=== PATIENT | female | born 1975 | race American Indian/Alaskan Native ===

== ENCOUNTER 2020-03-25 05:55 | Observation (INO) | payer BC ==
--- NOTE | 2020-03-22 15:15 | History and Physical Report ---
History of Present Illness Date of examination: 03/18/20 History of present illness: Patient has been reassessed/reevaluated. H&P has been reviewed. No interval changes. This is a 44 years old female who presents with uterine fibroids. The symptoms began >1 year ago. She complains of abdominal pain, abdominal pressure, pelvic pain, pelvic pressure, menorrhagia and intermenstrual bleeding. She complains of heavy bleeding, dysmenorrhea, clotting, and cramping, but denies , lack of menses, history of ovarian cysts, history of thyroid disease, history of bleeding disorder, lightheadedness and fatigue. Interval between menses is 28 days and 30 days. Patient reports that for pain she uses ibuprofen. Patient's work up has included hysterosonogram which revealed leiomyomata and a benign endometrial biopy. Patient's symptoms when present disrupts her normal daily activities Conservative therapies have failed. Patient desires definitive treatment Vital Signs: Patient Profile: 44 Years Old Female LMP: 02/26/2020 Height: 62 inches (157.48 cm) Weight: 182 pounds BMI: 33.28 Temp: 98.9 degrees F BP sittin / 80 Menstrual History: LMP (date): 02/26/2020 Current Method of Contraception: None Date of Last Pap Smear: 08/07/2019 Past History : 5 Term Births: 1 Premature Births: 0 Living Children: 1 Para: 1 Mult. Births: 0 Prev : 1 Aborta: 4 Elect. Ab: 0 Spont. Ab: 4 Ectopics: 0 LIVE IN [employer] History Operations: (1999) Ratna (2004) D&C: Abnormal PAP: positive Uterine Anomaly: positive fibroids Infection History HIV Risk Eval: no Personal hx. of genital herpes: yes Hx of STD: Trichomonas Current Allergies (reviewed today): PCN (Critical) ERYTHROMYCIN (Critical) REGLAN (Critical) IODINE (Critical) * LATEX (Critical) Past Medical History: PCOS Hypertension Fibroids Past Surgical History: (1999) Ratna (2004) D&C: Family History Summary: Reviewed history Last on 08/07/2019 and no changes required:03/22/2020 Daughter - Has No Family History of Ovarvian Cancer - Please disregard relationships chosen - Entered On: 03/31/2014 Daughter - Has No Family History of Colon Cancer - Please disregard relationships chosen - Entered On: 03/31/2014 Daughter - Has Family History of Lung Cancer - Please disregard relationships chosen - Entered On: 03/31/2014 Daughter - Has Family History of Hypertension - Please disregard relationships chosen - Entered On: 03/31/2014 Daughter - Has Family History of CVA or Stroke - Please disregard relationships chosen - Entered On: 03/31/2014 Daughter - Has Family History of Diabetes - Please disregard relationships chosen - Entered On: 03/31/2014 Daughter - Has Family History Breast Cancer - Please disregard relationships chosen - Entered On: 03/31/2014 Social History: Patient is single Correction Smoking History: Patient has never smoked. Risk Factors: Smoked Tobacco Use: Never smoker Smokeless Tobacco Use: Never Passive smoke exposure: no Drug use: no HIV high-risk behavior: no Caffeine use: 1 drinks per day Alcohol use: no Exercise: yes Times per week: 2 Seatbelt use: 100 % PAP Smear History: Date of Last PAP Smear: 08/07/2019 Review of Systems General Complains of fatigue. Denies fever, chills, sweats, anorexia, weakness, malaise, weight loss and sleep disorder. Complains of menorrhagia, abnormal vaginal bleeding, pelvic pain and painful periods. Denies vaginal discharge, incontinence, dysuria, hematuria, urinary frequency, amenorrhea, genital sores, decreased libido, painful sex, urinary urgency, hot flashes, vaginal dryness, vaginal itching and vaginal odor. CV Denies chest pains, palpitations, syncope, dyspnea on exertion, orthopnea, PND and peripheral edema. Resp Denies cough, dyspnea at rest, excessive sputum, hemoptysis, wheezing and pleurisy. GI Denies nausea, vomiting, diarrhea, constipation, change in bowel habits, abdominal pain, melena, hematochezia, jaundice, gas/bloating, indigestion/heartburn, dysphagia and odynophagia. Breast Denies left breast lump, right breast lump, nipple discharge, bloody discharge from nipple, breast pain, abnormal mammogram and breast enlargement. Psych Denies depression, anxiety, irritability and mood swings. Past History Past Medical History: other (SEE HPI FOR MORE DETAILS) Past Surgical History: , Other (SEE HPI FOR MORE DETAILS) Social history: full code, other (SEE HPI FOR MORE DETAILS) Family history: other (SEE HPI FOR MORE DETAILS) Medications and Allergies Allergies Allergy/AdvReac Type Severity Reaction Status Date / Time metoclopramide [From Reglan] Allergy Muscles Verified 03/19/20 15:12 locked up Penicillins Allergy Hives Verified 03/19/20 15:12 Home Medications Medication Instructions Recorded Confirmed Last Taken Type Albuterol Sulfate [Proventil Hfa] 2 puff IH Q4H PRN 03/19/20 03/19/20 Unknown History Ascorbic Acid [Vitamin C] 1,000 mg PO DAILY 03/19/20 03/19/20 Unknown History Docusate Sodium [Colace] 100 mg PO BID PRN 03/19/20 03/19/20 Unknown History Ibuprofen [Motrin] 600 mg PO Q8H PRN 03/19/20 03/19/20 Unknown History Multivitamin [Daily Multiple 1 each PO DAILY 03/19/20 03/19/20 Unknown History Vitamin] Naproxen [Naprosyn] 375 mg PO BID 03/19/20 03/19/20 Unknown History Sennosides [Senna] 8.6 mg PO DAILY 03/19/20 03/19/20 Unknown History cloNIDine [Catapres] 0.1 mg PO BID 03/19/20 03/19/20 Unknown History Review of Systems Constitutional: other (SEE HPI FOR MORE DETAILS) Exam - Physical Exam Narrative exam: HEENT: normocephalic, no lesions or deformities Skin no significant abnormal lesions or rashes increased hair growth Chest: respiratory effort normal, clear to auscultation CV: regular, normal S1-S2, no murmur, no rub, no gallop Abdomen: normal bowel sounds, soft, nontender, no HSM Well healed pfannenstiel scar increased hair growth Neuro: no gross anomalities Extremities: no clubbing, cyanosis, or edema increased hair growth L[employer] IN [employer] Exams Vulva/Vagina: No lesions, normal BUS, normal rugae Cervix: No lesions; no cervical motion tenderness Uterus: enlarged 10 to 12 weeks in size Adnexae: unable to palapte due to obesity Rectovaginal: exam defered Results - Labs CBC & Chem 7: 03/23/20 12:45 Assessment and Plan - Patient Problems (1) Intramural leiomyoma of uterus Current Visit: No Status: Acute (2) Menorrhagia Current Visit: No Status: Acute (3) Dysmenorrhea Current Visit: No Status: Acute (4) BMI 33.0-33.9,adult Current Visit: No Status: Acute (5) Asthma Current Visit: No Status: Acute Qualifiers: Asthma severity: unspecified severity
[2020-03-23 12:51] LABS: Basophils % (Auto) 0.7 % (0.0-1.8); Eosinophils # (Auto) 0.3 K/mm3 (0.0-0.4); Eosinophils % (Auto) 5.6 % (0.0-4.3); Hematocrit 37.7 % (30.3-42.9); Hemoglobin 12.2 gm/dl (10.1-14.3); Lymphocytes # (Auto) 2.1 K/mm3 (1.2-5.4); Lymphocytes % (Auto) 38.2 % (13.4-35.0); Mean Corpuscular HGB Conc 33 % (30-34); Mean Corpuscular Volume 76 fl (79-97); Monocytes # (Auto) 0.5 K/mm3 (0.0-0.8); Monocytes % (Auto) 9.5 % (0.0-7.3); Platelet Count 358 K/mm3 (140-440); Red Blood Count 4.99 M/mm3 (3.65-5.03); Red Cell Distribution Width 18.6 % (13.2-15.2)
--- NOTE | 2020-03-23 13:49 | Anesthesia Consultation ---
Anesthesia Consult and Med Hx Date of service: 03/25/20 - Airway Anesthetic Teeth Evaluation: Good ROM Head & Neck: Adequate Mental/Hyoid Distance: Adequate Mallampati Class: Class I Intubation Access Assessment: Good - Pulmonary Exam CTA: Yes - Cardiac Exam Cardiac Exam: RRR - Pre-Operative Health Status ASA Pre-Surgery Classification: ASA2 Proposed Anesthetic Plan: General Nerve Block: TAP - Pulmonary Hx Smoking: No Hx Asthma: Yes (last inhaler use 02/2020 triggered by freshly cut grass) Hx Respiratory Symptoms: No - Cardiovascular System Hx Hypertension: Yes Hx Heart Attack/AMI: No Hx Percutaneous Transluminal Coronary Angioplasty (PTCA): No Hx Cardia Arrhythmia: No - Central Nervous System CVA: No - Gastrointestinal Hx Gastroesophageal Reflux Disease: No - Endocrine Hx Renal Disease: No Hx Liver Disease: No Hx Insulin Dependent Diabetes: No Hx Non-Insulin Dependent Diabetes: No Hx Thyroid Disease: No - Other Systems Hx Obesity: Yes (BMI 33) - Additional Comments Anesthesia Medical History Comments: Hx PONV with previous anesthetics. BP elevated in preassessment, asymptomatic. Patient has not taken antihypertensives today and complains of pelvic pain. Instructed to take today's dose and also to take on the morning of surgery.
[2020-03-25] MEDS ORDERED: GENTAMICIN 40 MG/ML VIAL 2 ML IV SCH (06:00)
[2020-03-25] MEDS ORDERED: fentaNYL 100 MCG/2 ML INJ IV PRN (06:00)
[2020-03-25] MEDS ORDERED: GENTAMICIN/NS 120MG/100ML 120 MG/100 ML BAG IV NR (06:00)
[2020-03-25] MEDS ORDERED: ACETAMINOPHEN 500 MG TAB PO SCH (06:00)
[2020-03-25] MEDS ORDERED: SCOPOLAMINE TRANSDERMAL PATCH 72 HR TD NR (06:00)
[2020-03-25] MEDS ORDERED: MIDAZOLAM 2 MG/2 ML INJ IV NR (06:00)
[2020-03-25] MEDS ORDERED: GABAPENTIN 300 MG CAP PO NR (06:00)
[2020-03-25] MEDS: LACTATED RINGERS 1,000 ML IV SCH ×2 (06:30→13:43)
[2020-03-25] MEDS ORDERED: BUPIVACAINE-EPINEPHRINE/PF 0.25%-1:200,000 (10 ML) VIAL INFILTRATI ONE (07:11)
[2020-03-25] MEDS ORDERED: dexAMETHasone 4 MG/ML VIAL ONE (07:12)
[2020-03-25] MEDS ORDERED: CITRIC ACID-SOD CITRATE 500 ML IV ONE (07:15)
[2020-03-25] MEDS ORDERED: ROCURONIUM 50 MG/5 ML INJ IV ONE (07:22)
[2020-03-25] MEDS ORDERED: ONDANSETRON 4 MG/2 ML INJ ONE (07:22)
[2020-03-25] MEDS ORDERED: GLYCOPYRROLATE 0.4 MG/2 ML INJ ONE (07:22)
[2020-03-25] MEDS ORDERED: propofoL 200 MG/20 ML VIAL IV ONE (07:22)
[2020-03-25] MEDS ORDERED: NEOSTIGMINE 10MG/10 ML INJ MDV ONE (07:22)
[2020-03-25] MEDS ORDERED: SUCCINYLCHOLINE CHLORIDE 200 MG/10 ML INJ MDV ONE (07:22)
[2020-03-25] MEDS ORDERED: HYDROmorphone 1 MG/1 ML INJ ONE ×2 (07:22→10:17)
[2020-03-25] MEDS ORDERED: dexAMETHasone 20 MG/5 ML VIAL ONE (07:22)
[2020-03-25] MEDS ORDERED: LIDOCAINE MPF (2%) 20 MG/1 ML VIAL 5 ML ONE (07:22)
[2020-03-25] MEDS ORDERED: SODIUM CHLORIDE 0.9% 100 ML ONE (07:24)
[2020-03-25] MEDS ORDERED: VASOPRESSIN 20 UNIT/1 ML INJ ONE (07:25)
[2020-03-25] MEDS ORDERED: PHENYLEPHRINE/NS 1,000 MCG/10 ML SYRINGE (OR USE) IV ONE (07:30)
--- NOTE | 2020-03-25 07:35 | Anesthesia Day of Surgery ---
Anesthesia Day of Surgery - Day of Surgery Patient Examined: Yes Patient H&P Reviewed: Yes Patient is NPO: Yes
[2020-03-25 07:38] LABS: Alanine Aminotransferase 14 units/L (7-56); Albumin 3.7 g/dL (3.9-5); BUN/Creatinine Ratio 10; Blood Urea Nitrogen 8 mg/dL (7-17); Calcium 8.7 mg/dL (8.4-10.2); Hemolysis Index 18
[2020-03-25] MEDS ORDERED: ONDANSETRON 4 MG/2 ML INJ IV PRN (08:00)
[2020-03-25] MEDS ORDERED: VASOPRESSIN 20 UNIT in SODIUM CHLORIDE 0.9% 100 ML INFILTRATI ONE (09:40)
[2020-03-25] MEDS ORDERED: SODIUM CHLORIDE 0.9% IRRIG SOLN 2000 ML IR ONE (09:40)
[2020-03-25] MEDS ORDERED: SODIUM CHLORIDE 0.9% IRR 1,000 ML BOTTLE IR ONE (09:40)
--- NOTE | 2020-03-25 11:42 | Operative Report ---
Operative Report Operative Report: Date of procedure: March 25, 2020 Pre-operative diagnosis: Symptomatic leiomyomata with menorrhalgia and pain Post-operative diagnosis: Same plus pelvic adhesive disease Procedure name(s): Robotic assisted myomectomy with lysis of adhesions Surgeon: Félix Low MD [employer] Specialist: JOHN PAUL Suero Anesthesia: General EBL: 100 cc Complications: None Findings: Patient had omental adhesions in the anterior abdominal wall at a uterus approximately 10 to 12 weeks in size with a large posterior leiomyomata about 5 cm in diameter with evidence of adenomyosis where on ultrasound was possible anterior myoma about 1 cm of consistent with probable adenomyosis. Patient with normal ovaries and tubes bilaterally Specimen(s): Leiomyomata Procedure: Patient taken operating room where general endotracheal anesthesia was induced difficulty. She was placed in dorsal lithotomy position prepped and draped in usual normal sterile fashion for robotic procedure. The Foster catheter was placed in urinary bladder without difficulty speculum placed in the vagina. A medium V care uterine manipulator was placed without any difficulty. Then attention was switched to the patient's abdomen. Supra-umbilical incision was made with a knife. Spread with a hemostat. A 10-12 Trocar was placed in this incision while lifting out anterior abdominal wall under direct visualization. Intra-abdominal cavity was entered without any evidence of internal organ damage. Patient was insufflated approximately 3 and half liters of CO2 gas. Patient's pelvic findings noted above. The patient was perceived to be a candidate for robotic procedure. Three 8 mm robotic instrument trocars were placed. One on either side of the midline camera trocar approximately 8 cm from the midline and a third in the left lower quadrant approximately 2 fingerbreadths above the iliac crest. The trocars were placed under direct visualization with no signs of internal organ damage. An assistant property manager port was placed in the right lower quadrant 2 fingerbreadths above the iliac crest under direct visualization without any evidence of internal organ damage, this was a 10-12 trocar. Michael Alcocer fascia closure systems were placed in both the right lower quadrant trocar position and the midline trocar camera position. The patient was then placed in severe Trendelenburg position. At this time the da Ann robot was docked on the patient's left side and robotic trocars were connected and robotic instruments placed in the normal fashion. At that time I my place under the operating muniz. The midline omental adhesions were then taken down using bipolar cautery and unipolar scissors. This lysis of adhesions was successfully with good hemostasis exposing the patient's pelvic findings as noted above. Pitressin was then injected in the myometrium underneath and surrounding the posterior myoma. Incision was made in the midline posterior uterus with a robotic scissors exposing the capsule of the myoma. Progressively cauterization and cutting of the capsule around the myoma was used to remove the myoma from the myometrium. As successful removing the large moment was placed in anterior cul-de-sac. The palpation and attempt to locate the the possible anterior myoma was done with the area of the serosa then cut where this fullness was felt but no myoma was found but findings consistent with adenomyosis. Both surgical beds were inspected and cauterized. Both were closed in layers with 0-V lock sutures. Both these incisions were hemostatic. The pelvis was copiously irrigated and suctioned. The morcellator was then placed in the assistant property manager port in the right lower quadrant and the myoma was successfully morcellated and removed through this port. There was minimal spillage of myoma. Small portions myomas were retrieved and removed through the excess report. The pelvis was then copiously irrigated and suction. Marcie was then placed over the uterine incisions for postoperative hemostasis. This was followed by placement of Interceed and attempt to prevent postoperative adhesions. All instruments were then removed. The da Ann device was undocked. Trocars were removed. The larger incisions were closed in layers. The fascial closure was done with 2-0 Vicryl with the skin closure done subcuticularly with 4-0 Monocryl. The patient tolerated procedure well. Patient was awakened in operating room and come to recovery room in good condition.
[2020-03-25] MEDS: HYDROmorphone 1 MG/1 ML INJ IV PRN ×2 (11:55→12:05)
[2020-03-25] MEDS ORDERED: KETOROLAC 30 MG/1 ML INJ ONE (12:16)
[2020-03-25] MEDS ORDERED: KETOROLAC 30 MG/1 ML INJ IV ONE (13:00)
--- NOTE | 2020-03-25 13:35 | Post Anesthesia Evaluation ---
- Post Anesthesia Evaluation Patient Participated: Yes Airway Patent: Yes Stable Respiratory Function: Yes Nausea/Vomiting: No Temp > 96.8F: Yes Pain Manageable: Yes Adequeate Hydration: Yes Anesthesia Complications: No
[2020-03-25] MEDS ORDERED: MAGNESIUM HYDROXIDE (MOM) ORAL LIQD UDC PO PRN (14:00)
[2020-03-25] MEDS ORDERED: D5W/LACTATED RINGERS 1,000 ML IV SCH (14:00)
[2020-03-25] MEDS ORDERED: ACETAMINOPHEN 325 MG TAB PO PRN (14:00)
[2020-03-25] MEDS: HYDROcodone/ACETAMINOPHEN 5-325 MG TAB PO PRN ×2 (14:43→20:33)
[2020-03-25] MEDS ORDERED: fentaNYL 100 MCG/2 ML INJ IV ONE (16:39)
--- NOTE | 2020-03-25 17:32 | Event Note ---
Date: 03/25/20 Day of surgery. Discuss operative findings with patient and questions answered. Patient without fever. Will ambulate in halls this evening. Good urine output. We will continue routine postoperative care. If patient is stable after dinner will discharge home.
--- NOTE | 2020-03-25 17:36 | Short Stay Summary ---
Short Stay Documentation Date of service: 03/25/20 - History Past Medical History: other (SEE HPI FOR MORE DETAILS) Past Surgical History: , Other (SEE HPI FOR MORE DETAILS) Social history: full code, other (SEE HPI FOR MORE DETAILS) - Allergies and Medications Current Medications: Allergies metoclopramide [From Reglan] Allergy (Verified 03/19/20 15:12) Muscles locked up Penicillins Allergy (Verified 03/19/20 15:12) Hives Home Medications Medication Instructions Recorded Confirmed Last Taken Type Albuterol Sulfate [Proventil Hfa] 2 puff IH Q4H PRN 03/19/20 03/25/20 03/18/20 09:00 History Ascorbic Acid [Vitamin C] 1,000 mg PO DAILY 03/19/20 03/25/20 03/18/20 09:00 History Docusate Sodium [Colace] 100 mg PO BID PRN 03/19/20 03/25/20 03/22/20 09:00 History Ibuprofen [Motrin] 600 mg PO Q8H PRN 03/19/20 03/25/20 03/23/20 09:00 History Multivitamin [Daily Multiple 1 each PO DAILY 03/19/20 03/25/20 03/18/20 09:00 History Vitamin] Naproxen [Naprosyn] 375 mg PO BID 03/19/20 03/25/20 03/11/20 09:00 History Sennosides [Senna] 8.6 mg PO DAILY 03/19/20 03/25/20 03/22/20 09:00 History cloNIDine [Catapres] 0.1 mg PO BID 03/19/20 03/25/20 03/25/20 05:00 History Ibuprofen [Motrin 800 MG tab] 800 mg PO Q6H PRN #30 tablet 03/25/20 Unknown Rx oxyCODONE /ACETAMINOPHEN [Percocet 1 - 2 tab PO Q6HR PRN #20 tablet 03/25/20 Unknown Rx 5/325 mg] Active Medications Acetaminophen (Tylenol) 650 mg PO Q4H PRN PRN Reason: Pain MILD(1-3)/Fever >100.5/RIVERA Hydrocodone Bitart/Acetaminophen (Richton 5/325) 2 each PO Q6H PRN PRN Reason: Pain, Moderate (4-6) Last Admin: 03/25/20 14:43 Dose: 2 each Documented by: Docusate Sodium (Colace) 100 mg PO BID [facility] Dextrose/Lactated Ringer's (D5lr) 1,000 mls @ 150 mls/hr IV DIRECT RASHMI Clindamycin HCl (Cleocin 600 Mg/50 Ml) 600 mg in 50 mls @ 100 mls/hr IV Q8H [facility]; Protocol Stop: 03/25/20 22:29 Magnesium Hydroxide (Milk Of Magnesia) 30 ml PO Q4H PRN PRN Reason: Constipation Last Admin: 03/25/20 16:45 Dose: 30 ml Documented by: - Physical exam General appearance: no acute distress HEENT: Atraumatic Lungs: Normal air movement Breasts: deferred Heart: Regular rate Gastrointestinal: hypoactive bowel sounds, tenderness (Consistent with day of surgery), distended (Consistent with day of robotic surgery) Female Genitourinary: deferred Rectal Exam: deferred Extremities: no ischemia, pulses intact Neurological: Normal speech, Normal tone - Brief post op/procedure progress note Date of procedure: 03/25/20 (See operative note for details) - Hospital course Hospital course: Patient was admitted underwent the above him procedure without any complications. Patient will be discharged this evening with follow-up in office in 1-2 weeks for postop check. - Disposition Condition at discharge: Good Disposition: DC-01 TO HOME OR SELFCARE - Discharge Diagnoses (1) Intramural leiomyoma of uterus Status: Acute (2) Menorrhagia Status: Chronic Qualifiers: Menorrhagia type: with regular cycle Qualified Code(s): N92.0 - Excessive and frequent menstruation with regular cycle (3) Dysmenorrhea Status: Chronic (4) BMI 33.0-33.9,adult Status: Chronic (5) Asthma Status: Chronic Qualifiers: Asthma severity: unspecified severity Short Stay Discharge Plan Activity: advance as tolerated Wound: open to air Additional Instructions: Patient instructed no heavy lifting for 4 weeks. No intercourse for 8 weeks. Call office for fever, chills, nausea, vomiting or pain not controlled by pain medications. Ambulation is encouraged. Patient's call for heavy vaginal bleeding. Patient instructed to keep her scheduled post operative office appointment. Follow up with: TRACEY SALES MD [Primary Care Provider] - 7 Days Prescriptions: Ibuprofen [Motrin 800 MG tab] 800 mg PO Q6H PRN #30 tablet PRN Reason: Pain oxyCODONE /ACETAMINOPHEN [Percocet 5/325 mg] 1 - 2 tab PO Q6HR PRN #20 tablet PRN Reason: Pain
--- NOTE | 2020-03-25 18:17 | Event Note ---
Date: 03/25/20 Rubén'd called kike Parada RN stating patent complained of SOB while eating. She denies Chest pain and nausea/vomiting. However she did complain of indigestion earlier and recv'd [id number]. Otherwise she appears stable. Will cancel d/c home and observe overnight.
[2020-03-25] MEDS: ALBUTEROL 2.5 MG/3 ML NEBU IH SCH (18:40)
[2020-03-25 19:55] LABS: Hematocrit 35.6 % (30.3-42.9); Hemoglobin 11.9 gm/dl (10.1-14.3)
--- NOTE | 2020-03-25 21:01 | Event Note ---
Date: 03/25/20 Patient restingin bed, talking on her phone, states she feels better. No distress, will observe overnight and ? allow home in am, she agrees with plan of care
[2020-03-25] MEDS ORDERED: DOCUSATE SODIUM 100 MG CAP PO SCH (22:00)
[2020-03-25] MEDS: CLINDAMYCIN 600 MG/50 mL 600 MG/50 ML BAG IV SCH (23:12)
[2020-03-26] MEDS: ALBUTEROL 2.5 MG/3 ML NEBU IH SCH ×2 (00:20→10:03)
[2020-03-26] MEDS ORDERED: IBUPROFEN 800 MG TAB PO PRN (00:29)
[2020-03-26] MEDS: HYDROcodone/ACETAMINOPHEN 5-325 MG TAB PO PRN ×2 (03:17→09:14)
[2020-03-26] MEDS ORDERED: PETROLATUM,WHITE 30 GM OINT TP PRN (03:21)
[2020-03-26] MEDS: CLINDAMYCIN 600 MG/50 mL 600 MG/50 ML BAG IV SCH (06:11)
--- NOTE | 2020-03-26 09:35 | Event Note ---
Date: 03/26/20 SUBJECTIVE: Patient complains of gas pain denies any nausea or vomiting states that the shortness of breath is improved does feel "congested" denies any productive cough OBJECTIVE: Events of last evening reviewed Vital signs are stable afebrile Abdomen is soft slightly distended good bowel sounds appropriately tender postop ASSESSMENT: Patient is doing well postop. Discussed with the patient about gas pains post robotic surgery. Patient instructed no heavy lifting for 4 weeks. No intercourse for 8 weeks. Call office for fever, chills, nausea, vomiting or pain not controlled by pain medications. Ambulation is encouraged. Patient's call for heavy vaginal bleeding. Patient instructed to keep her scheduled post operative office appointment. PLAN: 1. We will discharge this a.m.
[2020-03-26] MEDS ORDERED: guaiFENesin DM 200/20 MG ORAL LIQD 10 ML PO PRN (10:00)
[2020-03-26 12:15] VITALS: BP 135/79
--- NOTE | 2020-03-26 19:08 | Event Note ---
Date: 03/26/20 (Post-Anesthesia Follow Up Call) Anesthesia services made aware by surgeon that Ms. Randhawa may have some questions regarding recent anesthetic. I went to visit Ms. Randhawa in her inpatient room but was informed by the nurse that she had been discharged. I called Ms. Randhawa on the number listed in EMR to address any concerns. Ms. Randhawa continues to have pain at her incision sites and "gas" pain which she feels is improved over the last 24hrs and is tolerable at home on current medication regimen. She reports that the scopolamine patch was effective for PONV prophylaxis. She has been ambulating without difficulty and I encouraged her to continue to ambulate frequently to prevent post-op complications and to promote bowel function. She does not report any anesthetic recall or other anesthetic complications. All additional questions and concerns were answered to her satisfaction. Sulma Troncoso MD Anesthesiologist
== END 2020-03-26 12:45 | disposition home or self-care (01) ==
LOC: OR 05:55 → OB 11:44
PROVIDERS: ADMIT Obstetrics & Gynecology; ATTEND Obstetrics & Gynecology
DX: N92.0 Excessive and frequent menstruation with regular cycle (principal); D25.1 Intramural leiomyoma of uterus; N94.6 Dysmenorrhea, unspecified; J45.909 Unspecified asthma, uncomplicated; Z98.890 Other specified postprocedural states; Z68.33 Body mass index [BMI] 33.0-33.9, adult; Z98.891 History of uterine scar from previous surgery
CPT/HCPCS: 36415; 58545; 64450; 80053; 84703; 85014; 85018; 85025; 86850; 86900; 86901; 88305; 94640; 94760; 96361; 96365; 96366; 96375; A4217; A6250; C1765; C1782; G0378; J0330; J1100; J1170; J1580; J1885; J2250; J2370; J2405; J2704; J2710; J3010; J7120; S2900; U0003

== ENCOUNTER 2020-05-27 07:00 | Day surgery (SDC) | payer BC ==
[2020-05-25 10:17] LABS: Hematocrit 42.2 % (30.3-42.9); Hemoglobin 13.7 gm/dl (10.1-14.3); Mean Corpuscular HGB Conc 33 % (30-34); Mean Corpuscular Volume 80 fl (79-97); Platelet Count 310 K/mm3 (140-440); Red Blood Count 5.28 M/mm3 (3.65-5.03)
[2020-05-25 10:20] LABS: Red Cell Distribution Width 21.4 % (13.2-15.2)
[2020-05-25 10:36] LABS: BUN/Creatinine Ratio 10; Blood Urea Nitrogen 8 mg/dL (7-17); Calcium 9.3 mg/dL (8.4-10.2); Hemolysis Index 1
[~2020-05-27 07:00] MED LIST: ceFAZolin/Water 2 GM/20 ML 2 GM/20 ML SYRINGE IV NR
[2020-05-27] MEDS ORDERED: LACTATED RINGERS 1,000 ML ONE (07:10)
[2020-05-27] MEDS ORDERED: BACTERIOSTATIC SODIUM CHLORIDE 0.9% 30 ML VIAL INFILTRATI ONE (07:11)
[2020-05-27] MEDS ORDERED: dexAMETHasone 20 MG/5 ML VIAL ONE (07:56)
[2020-05-27] MEDS ORDERED: GLYCOPYRROLATE 0.4 MG/2 ML INJ ONE (07:56)
[2020-05-27] MEDS ORDERED: LIDOCAINE MPF (2%) 20 MG/1 ML VIAL 5 ML ONE (07:56)
[2020-05-27] MEDS ORDERED: ONDANSETRON 4 MG/2 ML INJ ONE (07:56)
[2020-05-27] MEDS ORDERED: PHENYLEPHRINE/NS 1,000 MCG/10 ML SYRINGE (OR USE) IV ONE (07:56)
[2020-05-27] MEDS ORDERED: SUCCINYLCHOLINE CHLORIDE 200 MG/10 ML INJ MDV ONE (07:56)
[2020-05-27] MEDS ORDERED: fentaNYL 100 MCG/2 ML INJ ONE ×2 (07:57→09:53)
[2020-05-27] MEDS ORDERED: propofoL 200 MG/20 ML VIAL IV ONE (07:57)
[2020-05-27] MEDS ORDERED: VANCOMYCIN/NS 1 GM/250 ML 1 GM/250 ML BAG IV NR (08:00)
--- NOTE | 2020-05-27 08:14 | Anesthesia Day of Surgery ---
Anesthesia Day of Surgery - Day of Surgery Patient Examined: Yes Patient H&P Reviewed: Yes Patient is NPO: Yes
--- NOTE | 2020-05-27 08:16 | Anesthesia Consultation ---
Anesthesia Consult and Med Hx Date of service: 05/27/20 - Airway Anesthetic Teeth Evaluation: Good, Partials Mental/Hyoid Distance: Adequate Mallampati Class: Class II Intubation Access Assessment: Good - Pre-Operative Health Status ASA Pre-Surgery Classification: ASA2 Proposed Anesthetic Plan: General - Pre-Anesthesia Comment Pre-Anesthesia Comments: +PONV - Pulmonary Hx Smoking: No Hx Asthma: Yes (INHALER LAST USED 03/29/20) Hx Respiratory Symptoms: No (+2FS. Stable asthma-last attack 20 years ago. Allergic) COPD: No Hx Pneumonia: No Hx Sleep Apnea: No - Cardiovascular System Hx Hypertension: Yes Hx Heart Attack/AMI: No Hx Percutaneous Transluminal Coronary Angioplasty (PTCA): No Hx Cardia Arrhythmia: No - Central Nervous System Hx Neuromuscular Disorder: No (PCOS) CVA: No Hx Back Pain: Yes Hx Psychiatric Problems: No - Gastrointestinal Hx Gastroesophageal Reflux Disease: No - Endocrine Hx Renal Disease: No Hx End Stage Renal Disease: No Hx Liver Disease: No Hx Insulin Dependent Diabetes: No Hx Non-Insulin Dependent Diabetes: No Hx Thyroid Disease: No - Hematic Hx Anemia: Yes Hx Sickle Cell Disease: No - Other Systems Hx Cancer: No Hx Obesity: Yes (BMI 33)
[2020-05-27] MEDS ORDERED: BUPIVACAINE/PF (0.5%) 5 MG/1 ML 30 ML VIAL INFILTRATI ONE ×2 (08:59→09:44)
[2020-05-27] MEDS ORDERED: LACTATED RINGERS 1,000 ML IV SCH (09:00)
[2020-05-27] MEDS ORDERED: SCOPOLAMINE TRANSDERMAL PATCH 72 HR TD NR (09:00)
[2020-05-27] MEDS ORDERED: HYDROmorphone 1 MG/1 ML INJ IV PRN ×2 (09:00)
[2020-05-27] MEDS ORDERED: MIDAZOLAM 2 MG/2 ML INJ IV NR (09:00)
[2020-05-27] MEDS ORDERED: ONDANSETRON 4 MG/2 ML INJ IV PRN (09:00)
[2020-05-27 10:42] VITALS: BP 152/100
[2020-05-27] MEDS ORDERED: HYDROcodone/ACETAMINOPHEN 5-325 MG TAB ONE (11:08)
[2020-05-27] MEDS ORDERED: HYDROcodone/ACETAMINOPHEN 5-325 MG TAB PO PRN (11:30)
--- NOTE | 2020-05-27 14:47 | Post Anesthesia Evaluation ---
- Post Anesthesia Evaluation Patient Participated: Yes Airway Patent: Yes Stable Respiratory Function: Yes Nausea/Vomiting: No Temp > 96.8F: Yes Pain Manageable: Yes Adequeate Hydration: Yes Anesthesia Complications: No Block Receding Appropriately: Not Applicable Patient on Ventilator: No
--- NOTE | 2020-05-31 12:56 | Procedure Note ---
Date of procedure: 05/27/20 Pre-op diagnosis: Mass Right hand Post-op diagnosis: same Procedure: Excisional biopsy right hand Procedure Patient was brought to the OR placed on the OR table in the supine position following induction with MAC anesthesia the patient's right upper extremity was prepped and draped in the usual sterile manner. A timeout procedure was done to identify the patient and the correct operative site. An incision was made dorsally into the first webspace overlying the mass this was then taken down sharply through skin and subcu which brought us down to the muscular structures using a digital palpation. Hard and firm nodule present in the soft tissue fol lowing careful dissection we came up on a pearly white encapsulated structure deep within the interosseous muscle this structure was then shelled out from the surrounding soft tissue down towards the stalk there did appear to be some fluid consistent with ganglion cyst as well as firm whitish structure consistent with fibroma. The wound was copiously irrigated and closed in a standard routine fas hion Anesthesia: MAC Surgeon: KALEB QUIGLEY Convertible Top Installer: GENNY DOZIER Estimated blood loss: minimal Pathology: list (Soft tissue mass right hand) Specimen disposition: to lab Condition: stable Disposition: PACU
== END 2020-05-27 07:01 | disposition home or self-care (01) ==
LOC: OR 07:00
PROVIDERS: ATTEND Orthopaedic Surgery
DX: M67.441 Ganglion, right hand (principal); Z20.828 Contact with and (suspected) exposure to other viral communicable diseases; J45.909 Unspecified asthma, uncomplicated; G43.909 Migraine, unspecified, not intractable, without status migrainosus; I10 Essential (primary) hypertension; E66.9 Obesity, unspecified; D64.9 Anemia, unspecified; Z68.33 Body mass index [BMI] 33.0-33.9, adult; Z91.040 Latex allergy status; Z88.0 Allergy status to penicillin; Z91.041 Radiographic dye allergy status; Z88.8 Allergy status to other drugs, medicaments and biological substances; Z79.899 Other long term (current) drug therapy; Z98.891 History of uterine scar from previous surgery; Z98.890 Other specified postprocedural states
CPT/HCPCS: 26160; 36415; 80048; 84703; 85027; 88304; J0330; J1100; J2250; J2370; J2405; J2704; J3010; J3370; J7120; U0003; 88305; J0690